=== PATIENT | male | born 1980 | race Caucasian/White ===

== ENCOUNTER 2016-12-18 14:00 | Emergency (ER) | payer OTHER ==
[~2016-12-18] VITALS: Ht 180.3 cm; Wt 8.6 kg
[2016-12-18] MEDS ORDERED: AMBIEN10 MG PO (14:02)
[2016-12-18] MEDS ORDERED: CYMBALTA30 MG PO (14:02)
[2016-12-18] MEDS ORDERED: FLEXERIL10 MG PO (15:03)
[2016-12-18 15:52] VITALS: BP 111/92
== END 2016-12-18 16:03 | disposition home or self-care (01) ==
LOC: EME 14:00 → EDBD 14:00 → EXP 14:00
DX: S16.1XXA Strain of muscle, fascia and tendon at neck level, initial encounter (principal); V49.40XA Driver injured in collision with unspecified motor vehicles in traffic accident, initial encounter
CPT/HCPCS: 72050; 99281; 99283